=== PATIENT | male | born 1970 | race Caucasian/White ===

== ENCOUNTER 2016-12-06 17:20 | Emergency (ER) | payer OTHER ==
[~2016-12-06] VITALS: Ht 190.5 cm; Wt 115.0 kg
[~2016-12-06 17:20] MED LIST: ALLEGRA-D 241 TABLET PO; ALLOPURINOL100 MG PO; FENOFIBRATE160 M1 PO; LIPITOR40 MG PO; MOTRIN800 MG PO; PRILOSEC20 MG PO; ZANTAC150 MG PO; ZOFRAN4 MG PO
[2016-12-06] MEDS ORDERED: ULTRACET1 TABLET PO (19:27)
[2016-12-06] MEDS ORDERED: INDOCIN50 MG PO (19:27)
[2016-12-06 19:42] VITALS: BP 128/92
== END 2016-12-06 19:44 | disposition home or self-care (01) ==
LOC: EME 17:20 → EXP 17:20
DX: S56.912A Strain of unspecified muscles, fascia and tendons at forearm level, left arm, initial encounter (principal); X50.0XXA Overexertion from strenuous movement or load, initial encounter; M77.12 Lateral epicondylitis, left elbow; F17.200 Nicotine dependence, unspecified, uncomplicated; Z86.73 Personal history of transient ischemic attack (TIA), and cerebral infarction without residual deficits
CPT/HCPCS: 73080; 99281; 99284; J3010